=== PATIENT | male | born 1955 | race Caucasian/White ===

== ENCOUNTER 2017-08-12 11:00 | Outpatient (CLI) | payer OTHER | END 2017-08-12 11:01 | disposition home or self-care (01) | LOC: BICRAD 11:00 | PROVIDERS: ATTEND Chiropractor | DX: M54.41 Lumbago with sciatica, right side (principal); M99.03 Segmental and somatic dysfunction of lumbar region; M47.26 Other spondylosis with radiculopathy, lumbar region; M41.9 Scoliosis, unspecified | CPT/HCPCS: 72110 ==

== ENCOUNTER 2019-11-23 10:06 | Outpatient (CLI) | payer MEDICARE, OTHER | END 2019-11-23 10:07 | disposition home or self-care (01) | LOC: CTENTCT 10:06 | PROVIDERS: ATTEND Otolaryngology Plastic Surgery within the Head & Neck | DX: J32.9 Chronic sinusitis, unspecified (principal) | CPT/HCPCS: 70486 ==

== ENCOUNTER 2021-06-28 11:14 | Inpatient (IN) | payer MEDICARE, OTHER ==
[2021-06-28 11:42] LABS: #Eosinphils 0.1 thou/uL (0.0-0.7); #Lymphocytes 0.8 thou/uL (1.20-3.40); #Monocytes 0.6 thou/uL (0.11-0.59); #Neutrophils 11.3 thou/uL (1.40-6.50); %Basophils 0.1 % (0.0-1.0); %Lymphocytes 5.8 % (21.0-51.0); %Monocytes 4.8 % (0.0-10.0); %Neutrophils 88.3 % (42.0-75.0); Hemoglobin 15.4 g/dL (14.0-18.0); Mean Corpuscular HGB CONC 34.3 g/dL (32.0-36.0); Mean Corpuscular Hemoglobin 31.8 pg (27.0-31.0); Mean Corpuscular Volume 92.8 fL (78.0-98.0); Mean Platelet Volume 6.9 fL (7.4-10.4); Platelet Count 165 thou/uL (130-400); RBC Distribution Width 11.9 % (11.5-14.5); Red Blood Cell (RBC) Count 4.85 mill/uL (4.70-6.10); White Blood Cell (WBC) Count 12.8 thou/uL (4.8-10.8)
[2021-06-28] MEDS ORDERED: niCARdipine 25 MG/10 ML VIAL ONE (11:57)
[2021-06-28 12:03] LABS: ALT (SGPT) 29 U/L (8-55); AST (SGOT) 25 U/L (5-34); Albumin 4.1 g/dL (3.4-4.8); Alkaline Phosphatase 82 U/L (40-110); Anion Gap 16 mmol/L (10-20); BUN (Urea Nitrogen) 13 mg/dL (8.4-25.7); Bilirubin, Total 0.7 mg/dL (0.2-1.2); Calc. Creatinine Clearance 0 mL/min (70-130); Calcium 9.2 mg/dL (7.8-10.44); Carbon Dioxide 24 mmol/L (23-31); Chloride 105 mmol/L (98-107); Globulin 2.9 g/dL (2.4-3.5); Glucose 177 mg/dL (80-115); Potassium 3.2 mmol/L (3.5-5.1); Sodium 142 mmol/L (136-145)
[2021-06-28 12:07] LABS: Actual Bicarbonate (HCO3a) 22.8 mEq/L (22-28); Analyzer IN Cardio ER; Base Excess (BEa) -3.5 mEq/L (-2.0 to +3.0); CO2 Tension 45.4 mmHg (35.0-45.0); Calcium, Ionized (arterial) 1.17 mmol/L (1.12-1.30); Carboxyhemoglobin (COHb) 0.2 gm% (0.0-3.0); Hemoglobin (Hb) 15.7 g/dL (14.0-18.0); O2 Tension (PaO2), arterial 98.9 mmHg (> 80.0); Potassium - ABG Lab 3.46 mmol/L (3.70-5.30); pH, Arterial 7.32 (7.35-7.45)
[2021-06-28 12:16] LABS: Puncture Site RRA
[2021-06-28] MEDS ORDERED: Xylocaine 1% w/ Epi 1:100K 10 ML VIAL ONE (12:21)
[2021-06-28 12:24] LABS: Bacteria/HPF None Seen HPF (None Seen); Bilirubin Negative (Negative); Blood, Urine Trace (Negative); Clarity Clear (Clear); Glucose, Urine (Dipstick) 300 mg/dL (Negative); Ketone, Urine Negative (Negative); Leukocyte Negative Leu/uL (Negative); Nitrite Negative (Negative); Protein, Urine (Dipstick) 100 mg/dL (Neg-Trace); RBC/HPF 0-3 HPF (0-3); Specific Gravity, Urine 1.011 (1.002-1.036); Squamous Epithelial None Seen HPF (0-3); Urobilinogen Normal mg/dL (Less than 2); pH, Urine 7.5 (5.0-9.0)
[2021-06-28] MEDS ORDERED: Iopamidol-370 76% 500 ML 1 ML ONE (12:28)
[2021-06-28] MEDS ORDERED: Ondansetron PF 4 MG/2 ML Vial IVP PRN (12:54)
[2021-06-28] MEDS ORDERED: Acetaminophen 650 MG Suppository PR PRN (12:54)
[2021-06-28] MEDS ORDERED: Electrolyte Replacement Protocol 1 EACH IVPB ONE (12:54)
[2021-06-28] MEDS ORDERED: Ventilator Sedation Protocol 1 EACH FS SCH (13:00)
[2021-06-28 13:05] LABS: SARS-CoV-2 NAA Rapid Test Not Detected (NotDetected)
[2021-06-28] MEDS ORDERED: Labetalol HCl 100 MG/20 ML VIAL SLOW IVP PRN (13:19)
[2021-06-28] MEDS ORDERED: Lorazepam 2 MG/ML VIAL ONE (13:25)
[2021-06-28] MEDS ORDERED: Electrolyte Replacement Protocol FS PRN (14:00)
[2021-06-28] MEDS ORDERED: Fentanyl BOLUS 250 ML IVPB PRN (14:00)
[2021-06-28] MEDS ORDERED: Fentanyl CADD 100 ML IV SCH (14:00)
[2021-06-28] MEDS ORDERED: DISCONTINUE PREVIOUS NARCOTIC PAIN MEDICATIONS AND BENZODIAZEPINES FS SCH (14:00)
[2021-06-28] MEDS ORDERED: Propofol BOLUS 1,000 MG/100 ML VIAL IV PRN (14:00)
[2021-06-28] MEDS ORDERED: Lorazepam 2 MG/ML VIAL SLOW IVP PRN (14:00)
[2021-06-28] MEDS: ceFAZolin 2 GM/Dextrose 50 ML 2 GM in Premix Bag 1 BAG IVPB SCH ×2 (15:44→21:02)
[2021-06-28] MEDS: Sodium Chloride 0.9% 1,000 ML IV SCH (15:45)
[2021-06-28] MEDS ORDERED: FLU VACC QS2021-22(65YR UP)/PF 240 MCG/0.7 ML SYRINGE IM ONE (15:45)
[2021-06-28] MEDS: Propofol 1,000 MG/100 ML VIAL IV PRN (15:54)
[2021-06-28] MEDS: Acetaminophen 325 MG TAB PER TUBE PRN (17:42)
[2021-06-28] MEDS: Famotidine/PF 20 mg/2ml Vial SLOW IVP SCH (20:53)
[2021-06-28] MEDS: niCARdipine 25 MG in Sodium Chloride 0.9% 250 ML 250 ML IVPB PRN (20:53)
[2021-06-29] MEDS: Propofol 1,000 MG/100 ML VIAL IV PRN ×4 (00:57→21:03)
[2021-06-29] MEDS: niCARdipine 25 MG in Sodium Chloride 0.9% 250 ML 250 ML IVPB PRN ×2 (02:28→17:54)
[2021-06-29] MEDS: Sodium Chloride 0.9% 1,000 ML IV SCH ×2 (02:29→14:08)
[2021-06-29] MEDS: fentaNYL Citrate-0.9 % NaCl/PF 100 ML IVPB SCH (05:03)
[2021-06-29] MEDS: ceFAZolin 2 GM/Dextrose 50 ML 2 GM in Premix Bag 1 BAG IVPB SCH ×3 (05:04→22:44)
[2021-06-29] MEDS: Famotidine/PF 20 mg/2ml Vial SLOW IVP SCH ×2 (07:55→19:28)
[2021-06-29 10:15] LABS: Anion Gap 17 mmol/L (10-20); BUN (Urea Nitrogen) 13 mg/dL (8.4-25.7); Calc. Creatinine Clearance 69 mL/min (70-130); Calcium 9.6 mg/dL (7.8-10.44); Carbon Dioxide 23 mmol/L (23-31); Chloride 108 mmol/L (98-107); Glucose 138 mg/dL (80-115); Potassium 3.5 mmol/L (3.5-5.1); Sodium 144 mmol/L (136-145)
[2021-06-29 11:25] LABS: Band 7 % (5-11); Hemoglobin 15.2 g/dL (14.0-18.0); Lymphocytes 12 % (21-51); MDiff Complete? YES; Mean Corpuscular HGB CONC 33.9 g/dL (32.0-36.0); Mean Corpuscular Hemoglobin 31.6 pg (27.0-31.0); Mean Corpuscular Volume 93.3 fL (78.0-98.0); Mean Platelet Volume 7.1 fL (7.4-10.4); Monocytes 7 % (0-10); Neutrophil 74 % (42-75); Platelet Count 184 thou/uL (130-400); RBC Distribution Width 12.2 % (11.5-14.5); Red Blood Cell (RBC) Count 4.81 mill/uL (4.70-6.10); White Blood Cell (WBC) Count 12.7 thou/uL (4.8-10.8)
[2021-06-29] MEDS: Potassium Chloride 20 MEQ in Premix Bag 1 BAG IVPB SCH ×2 (14:07→16:29)
[2021-06-29] MEDS: Morphine 4 MG/ML VIAL SLOW IVP PRN (16:30)
[2021-06-29] MEDS: Acetaminophen 325 MG TAB PER TUBE PRN (16:30)
[2021-06-29] MEDS: Labetalol HCl 200 MG, Admixture Fee 1 EACH in Sodium Chloride 0.9% 250 ML 160 ML IVPB SCH (20:21)
[2021-06-30] MEDS: Labetalol HCl 200 MG, Admixture Fee 1 EACH in Sodium Chloride 0.9% 250 ML 160 ML IVPB SCH ×2 (03:26→10:08)
[2021-06-30] MEDS: Propofol 1,000 MG/100 ML VIAL IV PRN (03:27)
[2021-06-30 04:45] LABS: Band 12 % (5-11); Hemoglobin 14.2 g/dL (14.0-18.0); MDiff Complete? YES; Mean Corpuscular HGB CONC 34.1 g/dL (32.0-36.0); Mean Corpuscular Volume 93.8 fL (78.0-98.0); Monocytes 11 % (0-10); Neutrophil 77 % (42-75); Platelet Count 178 thou/uL (130-400); Platelet Morphology Comment Appears Adequate; RBC Distribution Width 12.2 % (11.5-14.5); RBC Morphology Normal; Red Blood Cell (RBC) Count 4.45 mill/uL (4.70-6.10)
[2021-06-30 04:55] LABS: Anion Gap 15 mmol/L (10-20); BUN (Urea Nitrogen) 16 mg/dL (8.4-25.7); Calc. Creatinine Clearance 89 mL/min (70-130); Calcium 9.4 mg/dL (7.8-10.44); Carbon Dioxide 20 mmol/L (23-31); Chloride 110 mmol/L (98-107); Glucose 155 mg/dL (80-115); Potassium 3.2 mmol/L (3.5-5.1); Sodium 142 mmol/L (136-145)
[2021-06-30] MEDS: Sodium Chloride 0.9% 1,000 ML IV SCH ×3 (05:30→23:54)
[2021-06-30] MEDS: ceFAZolin 2 GM/Dextrose 50 ML 2 GM in Premix Bag 1 BAG IVPB SCH ×3 (06:10→22:59)
[2021-06-30] MEDS: fentaNYL Citrate-0.9 % NaCl/PF 100 ML IVPB SCH (07:31)
[2021-06-30] MEDS: Potassium Chloride 20 MEQ in Premix Bag 1 BAG IVPB SCH ×2 (08:17→10:10)
[2021-06-30] MEDS: Famotidine/PF 20 mg/2ml Vial SLOW IVP SCH ×2 (08:18→21:51)
[2021-06-30] MEDS: hydrALAZINE 20 MG/ML VIAL SLOW IVP PRN (20:05)
[2021-07-01] MEDS: Labetalol HCl 200 MG, Admixture Fee 1 EACH in Sodium Chloride 0.9% 250 ML 160 ML IVPB SCH ×2 (01:10→08:30)
[2021-07-01 04:42] LABS: Anion Gap 14 mmol/L (10-20); BUN (Urea Nitrogen) 18 mg/dL (8.4-25.7); Calc. Creatinine Clearance 131 mL/min (70-130); Calcium 9.4 mg/dL (7.8-10.44); Carbon Dioxide 25 mmol/L (23-31); Chloride 106 mmol/L (98-107); Glucose 164 mg/dL (80-115); Potassium 3.5 mmol/L (3.5-5.1); Sodium 141 mmol/L (136-145)
[2021-07-01 05:11] LABS: Band 19 % (5-11); Hemoglobin 14.3 g/dL (14.0-18.0); Lymphocytes 10 % (21-51); MDiff Complete? YES; Mean Corpuscular HGB CONC 33.2 g/dL (32.0-36.0); Mean Corpuscular Hemoglobin 31.4 pg (27.0-31.0); Mean Corpuscular Volume 94.5 fL (78.0-98.0); Mean Platelet Volume 7.1 fL (7.4-10.4); Monocytes 5 % (0-10); Neutrophil 66 % (42-75); Platelet Count 163 thou/uL (130-400); RBC Distribution Width 12.1 % (11.5-14.5); Red Blood Cell (RBC) Count 4.57 mill/uL (4.70-6.10); White Blood Cell (WBC) Count 11.4 thou/uL (4.8-10.8)
[2021-07-01] MEDS ORDERED: Potassium Chloride 20 MEQ in Premix Bag 1 BAG IVPB SCH (06:00)
[2021-07-01] MEDS: ceFAZolin 2 GM/Dextrose 50 ML 2 GM in Premix Bag 1 BAG IVPB SCH ×2 (06:39→14:00)
[2021-07-01] MEDS: Potassium Chloride 10 MEQ in Premix Bag 1 BAG IVPB SCH ×4 (08:29→11:07)
[2021-07-01] MEDS: Famotidine/PF 20 mg/2ml Vial SLOW IVP SCH ×2 (10:01→21:18)
[2021-07-01] MEDS: Sodium Chloride 0.9% 1,000 ML IV SCH (13:50)
[2021-07-01] MEDS ORDERED: Fentanyl 100 MCG/2 ML VIAL ONE (14:12)
[2021-07-01] MEDS ORDERED: Midazolam HCl 2 mg/2 ml Vial ONE (14:12)
[2021-07-01] MEDS ORDERED: Lidocaine 1% (PF) 30 ML VIAL ONE (14:21)
[2021-07-01] MEDS ORDERED: Fentanyl 100 MCG/2 ML VIAL SLOW IVP SCH (14:30)
[2021-07-01] MEDS ORDERED: Midazolam HCl 2 mg/2 ml Vial SLOW IVP SCH (14:30)
[2021-07-01] MEDS ORDERED: Piperacillin/Tazobactam 3.375 GM in Sodium Chloride 0.9% 100 ML IVPB SCH (15:45)
[2021-07-01] MEDS ORDERED: VANCOMYCIN 2 GRAM/400 ML BAG 2 GM in Premix Bag 1 BAG IVPB SCH (15:45)
[2021-07-01] MEDS ORDERED: Lidocaine 1% (PF) 30 ML VIAL FS SCH (15:45)
[2021-07-01] MEDS: Piperacillin/Tazobactam 3.375 GM in Sodium Chloride 0.9% 100 ML IVPB SCH (21:18)
[2021-07-01] MEDS: Acetaminophen 325 MG TAB PER TUBE PRN (21:19)
[2021-07-01] MEDS ORDERED: metroNIDAZOLE 500 MG in Premix Bag 1 BAG IVPB SCH (22:00)
[2021-07-02] MEDS: niCARdipine 25 MG in Sodium Chloride 0.9% 250 ML 250 ML IVPB PRN ×4 (02:11→21:58)
[2021-07-02] MEDS: Piperacillin/Tazobactam 3.375 GM in Sodium Chloride 0.9% 100 ML IVPB SCH ×3 (03:31→20:33)
[2021-07-02] MEDS: Acetaminophen 325 MG TAB PER TUBE PRN ×3 (03:31→20:34)
[2021-07-02 05:04] LABS: ALT (SGPT) 11 U/L (8-55); AST (SGOT) 12 U/L (5-34); Albumin 3.1 g/dL (3.4-4.8); Alkaline Phosphatase 55 U/L (40-110); Anion Gap 12 mmol/L (10-20); BUN (Urea Nitrogen) 24 mg/dL (8.4-25.7); Bilirubin, Total 1.8 mg/dL (0.2-1.2); Calc. Creatinine Clearance 124 mL/min (70-130); Calcium 9.4 mg/dL (7.8-10.44); Carbon Dioxide 22 mmol/L (23-31); Chloride 110 mmol/L (98-107); Globulin 2.8 g/dL (2.4-3.5); Glucose 189 mg/dL (80-115); Potassium 3.4 mmol/L (3.5-5.1); Protein, Total 5.9 g/dL (5.8-8.1); Sodium 141 mmol/L (136-145)
[2021-07-02 05:11] LABS: Band 69 % (5-11); Hemoglobin 13.7 g/dL (14.0-18.0); Lymphocytes 3 % (21-51); MDiff Complete? YES; Mean Corpuscular HGB CONC 33.6 g/dL (32.0-36.0); Mean Corpuscular Volume 95.2 fL (78.0-98.0); Mean Platelet Volume 7.1 fL (7.4-10.4); Metamyelocyte 1 % (0-0); Monocytes 7 % (0-10); Neutrophil 19 % (42-75); Platelet Count 166 thou/uL (130-400); Platelet Morphology Comment Appears Adequate; RBC Distribution Width 12.2 % (11.5-14.5); RBC Morphology Normal; Reactive Lymphocytes 1 % (0-10); Red Blood Cell (RBC) Count 4.29 mill/uL (4.70-6.10); Reflex for Review?? YES
[2021-07-02] MEDS: VANCOMYCIN 1.75 GM/350 ML BAG 1.75 GM in Premix Bag 1 BAG IVPB SCH ×2 (05:18→17:45)
[2021-07-02] MEDS ORDERED: Magnesium 2 GM/50 ML 2 GM in Premix Bag 1 BAG IVPB SCH (06:30)
[2021-07-02] MEDS: Potassium Chloride 20 MEQ in Premix Bag 1 BAG IVPB SCH ×2 (09:42→14:25)
[2021-07-02] MEDS: Famotidine/PF 20 mg/2ml Vial SLOW IVP SCH ×2 (09:42→20:33)
[2021-07-02] MEDS ORDERED: Lisinopril 20 MG TAB PO SCH (12:00)
[2021-07-02] MEDS ORDERED: Amlodipine 10 MG TAB PO SCH (12:00)
[2021-07-02] MEDS: Sodium Chloride 0.9% 1,000 ML IV SCH (17:37)
[2021-07-02] MEDS: hydrALAZINE 20 MG/ML VIAL SLOW IVP PRN (19:04)
[2021-07-03] MEDS: Sodium Chloride 0.9% 1,000 ML IV SCH ×2 (00:35→08:00)
[2021-07-03] MEDS: niCARdipine 25 MG in Sodium Chloride 0.9% 250 ML 250 ML IVPB PRN ×3 (00:43→06:02)
[2021-07-03] MEDS: Morphine 4 MG/ML VIAL SLOW IVP PRN (04:14)
[2021-07-03] MEDS: VANCOMYCIN 1.75 GM/350 ML BAG 1.75 GM in Premix Bag 1 BAG IVPB SCH (04:16)
[2021-07-03] MEDS: Piperacillin/Tazobactam 3.375 GM in Sodium Chloride 0.9% 100 ML IVPB SCH ×3 (04:16→20:48)
[2021-07-03] MEDS: Acetaminophen 325 MG TAB PER TUBE PRN ×4 (04:46→22:43)
[2021-07-03 05:37] LABS: Hemoglobin 13.3 g/dL (14.0-18.0); Mean Corpuscular HGB CONC 33.2 g/dL (32.0-36.0); Mean Corpuscular Hemoglobin 31.8 pg (27.0-31.0); Mean Platelet Volume 7.3 fL (7.4-10.4); Platelet Count 191 thou/uL (130-400); RBC Distribution Width 12.2 % (11.5-14.5); Red Blood Cell (RBC) Count 4.17 mill/uL (4.70-6.10); White Blood Cell (WBC) Count 10.8 thou/uL (4.8-10.8)
[2021-07-03 05:56] LABS: Anion Gap 11 mmol/L (10-20); BUN (Urea Nitrogen) 25 mg/dL (8.4-25.7); Calc. Creatinine Clearance 131 mL/min (70-130); Carbon Dioxide 24 mmol/L (23-31); Chloride 113 mmol/L (98-107); Potassium 3.3 mmol/L (3.5-5.1); Sodium 145 mmol/L (136-145)
[2021-07-03 05:57] LABS: ALT (SGPT) 10 U/L (8-55); AST (SGOT) 12 U/L (5-34); Alkaline Phosphatase 63 U/L (40-110); Bilirubin, Total 1.3 mg/dL (0.2-1.2); Calcium 9.4 mg/dL (7.8-10.44); Glucose 178 mg/dL (80-115); Magnesium 2.2 mg/dL (1.6-2.6)
[2021-07-03] MEDS ORDERED: Potassium Chloride 40 MEQ in Premix Bag 1 BAG IVPB SCH (07:00)
[2021-07-03 07:16] LABS: Band 18 % (5-11); Lymphocytes 13 % (21-51); MDiff Complete? YES; Monocytes 3 % (0-10); Neutrophil 66 % (42-75); Platelet Morphology Comment Appears Adequate; RBC Morphology Normal
[2021-07-03] MEDS: Famotidine/PF 20 mg/2ml Vial SLOW IVP SCH ×2 (08:00→20:48)
[2021-07-03] MEDS ORDERED: Sterile Water 10 ML ONE (09:24)
[2021-07-03 09:27] LABS: Vancomycin, Trough 22.7 ug/mL
[2021-07-03] MEDS ORDERED: hydrALAZINE 20 MG/ML VIAL SLOW IVP PRN (10:00)
[2021-07-03] MEDS ORDERED: Lisinopril 20 MG TAB PO SCH (10:15)
[2021-07-03] MEDS ORDERED: Metoprolol Tartrate 25 MG TAB PO SCH (10:15)
[2021-07-03] MEDS ORDERED: Amlodipine 10 MG TAB PO SCH (10:15)
[2021-07-03] MEDS ORDERED: Polyethylene Glycol 3350 17 GM Packet PO SCH (10:45)
[2021-07-03] MEDS ORDERED: Senokot S 8.6-50 MG TAB PO SCH (10:45)
[2021-07-03] MEDS: VANCOMYCIN 1.25 GM/250 ML BAG 1.25 GM in Premix Bag 1 BAG IVPB SCH (16:10)
[2021-07-03] MEDS ORDERED: Magnevist 469MG/ML 20 ML VIAL ONE ×2 (16:34→16:36)
[2021-07-03] MEDS: Lisinopril 20 MG TAB PO SCH (20:48)
[2021-07-03] MEDS: Senokot S 8.6-50 MG TAB PO SCH (20:48)
[2021-07-03] MEDS: Metoprolol Tartrate 50 MG TAB PO SCH (20:48)
[2021-07-04] MEDS: Sodium Chloride 0.9% 1,000 ML IV SCH ×2 (01:26→12:38)
[2021-07-04] MEDS: Acetaminophen 650 MG/20.3 ML UDCUP PER TUBE PRN ×3 (03:52→20:30)
[2021-07-04] MEDS: Piperacillin/Tazobactam 3.375 GM in Sodium Chloride 0.9% 100 ML IVPB SCH ×3 (03:52→20:25)
[2021-07-04] MEDS: niCARdipine 25 MG in Sodium Chloride 0.9% 250 ML 250 ML IVPB PRN ×4 (04:08→22:11)
[2021-07-04 04:42] LABS: Band 23 % (5-11); Hemoglobin 13.9 g/dL (14.0-18.0); Lymphocytes 5 % (21-51); MDiff Complete? YES; Mean Corpuscular HGB CONC 33.3 g/dL (32.0-36.0); Mean Corpuscular Volume 95.9 fL (78.0-98.0); Mean Platelet Volume 7.4 fL (7.4-10.4); Monocytes 5 % (0-10); Neutrophil 67 % (42-75); Platelet Count 227 thou/uL (130-400); Platelet Morphology Comment Appears Adequate; RBC Distribution Width 12.3 % (11.5-14.5); RBC Morphology Normal; Red Blood Cell (RBC) Count 4.35 mill/uL (4.70-6.10); White Blood Cell (WBC) Count 12.9 thou/uL (4.8-10.8)
[2021-07-04 04:50] LABS: ALT (SGPT) 21 U/L (8-55); AST (SGOT) 28 U/L (5-34); Alkaline Phosphatase 85 U/L (40-110); Anion Gap 15 mmol/L (10-20); BUN (Urea Nitrogen) 24 mg/dL (8.4-25.7); Bilirubin, Total 1.1 mg/dL (0.2-1.2); Calc. Creatinine Clearance 149 mL/min (70-130); Calcium 9.6 mg/dL (7.8-10.44); Carbon Dioxide 23 mmol/L (23-31); Chloride 112 mmol/L (98-107); Globulin 3.4 g/dL (2.4-3.5); Glucose 165 mg/dL (80-115); Magnesium 2.2 mg/dL (1.6-2.6); Potassium 3.4 mmol/L (3.5-5.1); Protein, Total 6.4 g/dL (5.8-8.1); Sodium 147 mmol/L (136-145)
[2021-07-04] MEDS: VANCOMYCIN 1.25 GM/250 ML BAG 1.25 GM in Premix Bag 1 BAG IVPB SCH ×2 (05:33→16:04)
[2021-07-04] MEDS ORDERED: Electrolyte Replacement Protocol 1 EACH FS ONE (07:41)
[2021-07-04] MEDS ORDERED: Potassium Chloride 40 MEQ in Premix Bag 1 BAG IVPB SCH (07:45)
[2021-07-04] MEDS ORDERED: Electrolyte Replacement Protocol FS PRN (08:00)
[2021-07-04] MEDS: Famotidine/PF 20 mg/2ml Vial SLOW IVP SCH (08:03)
[2021-07-04] MEDS: Polyethylene Glycol 3350 17 GM Packet PO SCH (08:03)
[2021-07-04] MEDS: Amlodipine 10 MG TAB PO SCH (08:04)
[2021-07-04] MEDS: Lisinopril 20 MG TAB PO SCH ×2 (08:04→20:36)
[2021-07-04] MEDS: Senokot S 8.6-50 MG TAB PO SCH ×2 (08:04→20:37)
[2021-07-04] MEDS: Metoprolol Tartrate 50 MG TAB PO SCH ×2 (08:04→20:37)
[2021-07-04] MEDS: Famotidine 20 MG TAB PER TUBE SCH ×2 (09:34→20:37)
[2021-07-04 14:58] LABS: Potassium 3.7 mmol/L (3.5-5.1)
[2021-07-05] MEDS: niCARdipine 25 MG in Sodium Chloride 0.9% 250 ML 250 ML IVPB PRN ×2 (01:40→04:23)
[2021-07-05] MEDS: Acetaminophen 650 MG/20.3 ML UDCUP PER TUBE PRN ×4 (02:20→20:46)
[2021-07-05] MEDS: Piperacillin/Tazobactam 3.375 GM in Sodium Chloride 0.9% 100 ML IVPB SCH ×3 (04:22→20:41)
[2021-07-05] MEDS: Sodium Chloride 0.9% 1,000 ML IV SCH (04:38)
[2021-07-05 06:03] LABS: Anion Gap 15 mmol/L (10-20); BUN (Urea Nitrogen) 28 mg/dL (8.4-25.7); Calc. Creatinine Clearance 139 mL/min (70-130); Calcium 9.2 mg/dL (7.8-10.44); Carbon Dioxide 22 mmol/L (23-31); Chloride 115 mmol/L (98-107); Glucose 171 mg/dL (80-115); Potassium 3.4 mmol/L (3.5-5.1); Sodium 149 mmol/L (136-145)
[2021-07-05 06:15] LABS: Band 7 % (5-11); Hemoglobin 13.1 g/dL (14.0-18.0); Hypochromia SLIGHT = 6-15 cells (100X) (0-5/hpf); Lymphocytes 10 % (21-51); MDiff Complete? YES; Mean Corpuscular Hemoglobin 32.2 pg (27.0-31.0); Mean Corpuscular Volume 97.4 fL (78.0-98.0); Mean Platelet Volume 7.1 fL (7.4-10.4); Monocytes 6 % (0-10); Neutrophil 77 % (42-75); Platelet Count 260 thou/uL (130-400); Platelet Morphology Comment Appears Adequate; RBC Distribution Width 12.7 % (11.5-14.5); Red Blood Cell (RBC) Count 4.08 mill/uL (4.70-6.10); White Blood Cell (WBC) Count 10.5 thou/uL (4.8-10.8)
[2021-07-05 06:18] LABS: Vancomycin, Trough 7.3 ug/mL
[2021-07-05] MEDS: VANCOMYCIN 1.25 GM/250 ML BAG 1.25 GM in Premix Bag 1 BAG IVPB SCH (06:39)
[2021-07-05] MEDS ORDERED: Potassium Chloride 40 MEQ in Premix Bag 1 BAG IVPB SCH (07:00)
[2021-07-05] MEDS: niCARdipine 50 MG in Sodium Chloride 0.9% 250 ML 230 ML IV SCH ×2 (07:11→23:26)
[2021-07-05] MEDS: Sodium Chloride 0.45% 1,000 ML IV SCH ×2 (07:58→20:46)
[2021-07-05] MEDS ORDERED: VANCOMYCIN 1.75 GM/350 ML BAG 1.75 GM in Premix Bag 1 BAG IVPB SCH (08:00)
[2021-07-05] MEDS: Famotidine 20 MG TAB PER TUBE SCH ×2 (08:18→20:42)
[2021-07-05] MEDS: Metoprolol Tartrate 50 MG TAB PO SCH ×2 (08:18→20:44)
[2021-07-05] MEDS: Lisinopril 20 MG TAB PO SCH ×2 (08:18→20:43)
[2021-07-05] MEDS: Amlodipine 10 MG TAB PO SCH (08:18)
[2021-07-05] MEDS: Senokot S 8.6-50 MG TAB PO SCH ×2 (08:18→20:44)
[2021-07-05] MEDS: hydrALAZINE 25 MG TAB PO SCH ×4 (08:18→20:43)
[2021-07-05] MEDS: Polyethylene Glycol 3350 17 GM Packet PO SCH (08:18)
[2021-07-05] MEDS ORDERED: niCARdipine 50 MG in Sodium Chloride 0.9% 250 ML 230 ML IV SCH (11:15)
[2021-07-05 18:41] LABS: SARS-CoV-2 PCR by NAA Not Detected (NotDetected)
[2021-07-06] MEDS: Acetaminophen 650 MG/20.3 ML UDCUP PER TUBE PRN ×3 (04:15→15:57)
[2021-07-06] MEDS: Piperacillin/Tazobactam 3.375 GM in Sodium Chloride 0.9% 100 ML IVPB SCH ×3 (04:15→20:45)
[2021-07-06 04:59] LABS: Band 1 % (5-11); Hemoglobin 13.9 g/dL (14.0-18.0); Lymphocytes 13 % (21-51); MDiff Complete? YES; Mean Corpuscular HGB CONC 33.8 g/dL (32.0-36.0); Mean Corpuscular Hemoglobin 33.2 pg (27.0-31.0); Mean Corpuscular Volume 98.1 fL (78.0-98.0); Mean Platelet Volume 6.9 fL (7.4-10.4); Monocytes 11 % (0-10); Neutrophil 74 % (42-75); Platelet Count 288 thou/uL (130-400); Platelet Morphology Comment Appears Adequate; RBC Distribution Width 12.7 % (11.5-14.5); RBC Morphology Normal; Red Blood Cell (RBC) Count 4.18 mill/uL (4.70-6.10); White Blood Cell (WBC) Count 12.9 thou/uL (4.8-10.8)
[2021-07-06 05:00] LABS: Anion Gap 13 mmol/L (10-20); BUN (Urea Nitrogen) 29 mg/dL (8.4-25.7); Calc. Creatinine Clearance 137 mL/min (70-130); Calcium 9.3 mg/dL (7.8-10.44); Carbon Dioxide 26 mmol/L (23-31); Chloride 117 mmol/L (98-107); Glucose 183 mg/dL (80-115); Potassium 3.6 mmol/L (3.5-5.1); Sodium 152 mmol/L (136-145)
[2021-07-06] MEDS: Famotidine 20 MG TAB PER TUBE SCH ×2 (07:55→21:16)
[2021-07-06] MEDS: Lisinopril 20 MG TAB PO SCH ×2 (07:55→21:17)
[2021-07-06] MEDS: Amlodipine 10 MG TAB PO SCH (07:56)
[2021-07-06] MEDS: hydrALAZINE 25 MG TAB PO SCH ×4 (07:56→21:17)
[2021-07-06] MEDS: Polyethylene Glycol 3350 17 GM Packet PO SCH (07:56)
[2021-07-06] MEDS: Senokot S 8.6-50 MG TAB PO SCH ×2 (07:56→21:18)
[2021-07-06] MEDS: Metoprolol Tartrate 50 MG TAB PO SCH ×2 (07:56→21:17)
[2021-07-06] MEDS: Sodium Chloride 0.45% 1,000 ML IV SCH (10:06)
[2021-07-06] MEDS: Dextrose 5% in Water 1,000 ML IV SCH ×2 (11:00→21:15)
[2021-07-06 19:33] LABS: Vancomycin, Trough Less than 1.1 ug/mL
[2021-07-07] MEDS: niCARdipine 50 MG in Sodium Chloride 0.9% 250 ML 230 ML IV SCH (00:18)
[2021-07-07] MEDS: Piperacillin/Tazobactam 3.375 GM in Sodium Chloride 0.9% 100 ML IVPB SCH ×3 (04:30→20:39)
[2021-07-07 05:01] LABS: Anion Gap 14 mmol/L (10-20); BUN (Urea Nitrogen) 28 mg/dL (8.4-25.7); Calc. Creatinine Clearance 128 mL/min (70-130); Calcium 8.8 mg/dL (7.8-10.44); Carbon Dioxide 26 mmol/L (23-31); Chloride 112 mmol/L (98-107); Glucose 209 mg/dL (80-115); Potassium 3.5 mmol/L (3.5-5.1); Sodium 148 mmol/L (136-145)
[2021-07-07] MEDS: Dextrose 5% in Water 1,000 ML IV SCH (05:52)
[2021-07-07 05:53] LABS: Band 8 % (5-11); Hemoglobin 13.3 g/dL (14.0-18.0); Lymphocytes 13 % (21-51); MDiff Complete? YES; Mean Corpuscular HGB CONC 32.3 g/dL (32.0-36.0); Mean Corpuscular Hemoglobin 31.7 pg (27.0-31.0); Mean Platelet Volume 7.1 fL (7.4-10.4); Monocytes 4 % (0-10); Neutrophil 75 % (42-75); Platelet Count 289 thou/uL (130-400); Platelet Morphology Comment Appears Adequate; RBC Distribution Width 12.8 % (11.5-14.5); RBC Morphology Normal; Red Blood Cell (RBC) Count 4.19 mill/uL (4.70-6.10); White Blood Cell (WBC) Count 13.6 thou/uL (4.8-10.8)
[2021-07-07] MEDS ORDERED: Potassium Chloride 20 MEQ TAB PO SCH (07:00)
[2021-07-07] MEDS: Metoprolol Tartrate 50 MG TAB PO SCH ×2 (08:07→20:42)
[2021-07-07] MEDS: hydrALAZINE 25 MG TAB PO SCH ×4 (08:07→20:42)
[2021-07-07] MEDS: Amlodipine 10 MG TAB PO SCH (08:07)
[2021-07-07] MEDS: Polyethylene Glycol 3350 17 GM Packet PO SCH (08:08)
[2021-07-07] MEDS: Acetaminophen 650 MG/20.3 ML UDCUP PER TUBE PRN ×3 (08:08→13:11)
[2021-07-07] MEDS: Senokot S 8.6-50 MG TAB PO SCH ×2 (08:08→20:42)
[2021-07-07] MEDS: Lisinopril 20 MG TAB PO SCH ×2 (08:08→20:42)
[2021-07-07] MEDS: Famotidine 20 MG TAB PER TUBE SCH ×2 (08:08→20:42)
[2021-07-07] MEDS ORDERED: Potassium Bicarbonate/Cit Ac 20 MEQ TAB PO SCH (09:00)
[2021-07-07] MEDS ORDERED: Dextrose 5% in Water 1,000 ML IV PRN (17:05)
[2021-07-07] MEDS ORDERED: Dextrose 50% Abboject 50 ML SYRINGE SLOW IVP PRN (17:05)
[2021-07-07] MEDS: HumaLOG 300 UNITS/3 ML VIAL SC PRN (18:22)
[2021-07-07] MEDS ORDERED: Lantus 1000 UNITS/10 ML VIAL SC SCH (21:00)
[2021-07-08] MEDS: HumaLOG 300 UNITS/3 ML VIAL SC PRN ×3 (00:23→18:13)
[2021-07-08] MEDS: Piperacillin/Tazobactam 3.375 GM in Sodium Chloride 0.9% 100 ML IVPB SCH ×3 (04:17→20:41)
[2021-07-08] MEDS: Acetaminophen 650 MG/20.3 ML UDCUP PER TUBE PRN ×3 (04:29→16:03)
[2021-07-08 06:47] LABS: Band 3 % (5-11); Eosinophils 1 % (0-10); Hemoglobin 14.2 g/dL (14.0-18.0); Lymphocytes 19 % (21-51); MDiff Complete? YES; Mean Corpuscular HGB CONC 32.6 g/dL (32.0-36.0); Mean Corpuscular Volume 98.2 fL (78.0-98.0); Mean Platelet Volume 8.1 fL (7.4-10.4); Monocytes 7 % (0-10); Neutrophil 70 % (42-75); Platelet Count 256 thou/uL (130-400); Platelet Morphology Comment Appears Adequate; RBC Distribution Width 12.8 % (11.5-14.5); RBC Morphology Normal; Red Blood Cell (RBC) Count 4.46 mill/uL (4.70-6.10); White Blood Cell (WBC) Count 16.2 thou/uL (4.8-10.8)
[2021-07-08 06:51] LABS: Anion Gap 16 mmol/L (10-20); BUN (Urea Nitrogen) 28 mg/dL (8.4-25.7); Calc. Creatinine Clearance 123 mL/min (70-130); Calcium 9.1 mg/dL (7.8-10.44); Carbon Dioxide 23 mmol/L (23-31); Chloride 111 mmol/L (98-107); Glucose 160 mg/dL (80-115); Potassium 4.1 mmol/L (3.5-5.1); Sodium 146 mmol/L (136-145)
[2021-07-08] MEDS: Polyethylene Glycol 3350 17 GM Packet PO SCH (08:21)
[2021-07-08] MEDS: Amlodipine 10 MG TAB PO SCH (08:21)
[2021-07-08] MEDS: Metoprolol Tartrate 50 MG TAB PO SCH ×2 (08:21→20:42)
[2021-07-08] MEDS: Lisinopril 20 MG TAB PO SCH ×2 (08:21→21:54)
[2021-07-08] MEDS: Famotidine 20 MG TAB PER TUBE SCH ×2 (08:21→20:42)
[2021-07-08] MEDS: hydrALAZINE 25 MG TAB PO SCH ×4 (08:22→21:53)
[2021-07-08] MEDS: Senokot S 8.6-50 MG TAB PO SCH ×2 (08:22→20:42)
[2021-07-09] MEDS: HumaLOG 300 UNITS/3 ML VIAL SC PRN ×4 (00:08→17:31)
[2021-07-09 04:08] LABS: Band 17 % (5-11); Eosinophils 1 % (0-10); Hemoglobin 14.9 g/dL (14.0-18.0); Lymphocytes 9 % (21-51); MDiff Complete? YES; Mean Corpuscular HGB CONC 32.9 g/dL (32.0-36.0); Mean Corpuscular Volume 97.2 fL (78.0-98.0); Mean Platelet Volume 7.6 fL (7.4-10.4); Monocytes 5 % (0-10); Neutrophil 68 % (42-75); Platelet Count 312 thou/uL (130-400); Platelet Morphology Comment Appears Adequate; RBC Distribution Width 12.6 % (11.5-14.5); Red Blood Cell (RBC) Count 4.66 mill/uL (4.70-6.10); White Blood Cell (WBC) Count 13.5 thou/uL (4.8-10.8)
[2021-07-09 04:15] LABS: Anion Gap 16 mmol/L (10-20); BUN (Urea Nitrogen) 30 mg/dL (8.4-25.7); Calc. Creatinine Clearance 128 mL/min (70-130); Calcium 9.5 mg/dL (7.8-10.44); Carbon Dioxide 23 mmol/L (23-31); Chloride 111 mmol/L (98-107); Glucose 162 mg/dL (80-115); Potassium 4.4 mmol/L (3.5-5.1); Sodium 146 mmol/L (136-145)
[2021-07-09] MEDS: Piperacillin/Tazobactam 3.375 GM in Sodium Chloride 0.9% 100 ML IVPB SCH ×3 (04:31→20:15)
[2021-07-09] MEDS: Acetaminophen 650 MG/20.3 ML UDCUP PER TUBE PRN ×2 (04:31→20:15)
[2021-07-09] MEDS ORDERED: Dextrose 50% Abboject 50 ML SYRINGE SLOW IVP PRN (07:55)
[2021-07-09] MEDS ORDERED: Dextrose 5% in Water 1,000 ML IV PRN (07:55)
[2021-07-09] MEDS: hydrALAZINE 25 MG TAB PO SCH ×4 (09:17→20:15)
[2021-07-09] MEDS: Amlodipine 10 MG TAB PO SCH (09:17)
[2021-07-09] MEDS: Famotidine 20 MG TAB PER TUBE SCH ×2 (09:17→20:15)
[2021-07-09] MEDS: Lisinopril 20 MG TAB PO SCH ×2 (09:17→20:16)
[2021-07-09] MEDS: Metoprolol Tartrate 50 MG TAB PO SCH ×2 (09:17→20:16)
[2021-07-09] MEDS: Senokot S 8.6-50 MG TAB PO SCH ×2 (09:18→20:16)
[2021-07-09] MEDS: Polyethylene Glycol 3350 17 GM Packet PO SCH (09:18)
[2021-07-09 11:01] LABS: Actual Bicarbonate (HCO3v) 28 mEq/L (22-28); Base Excess 3.8 mEq/L (-2.0 to +3.0); Calcium, Ionized (venous) 1.16 mmol/L (1.16-1.32); Chloride (VBG) 110 mmol/L (98-106); Hemoglobin (Hb) 15.2 g/dL (12.6-17.4); Potassium (VBG) 4.37 mmol/L (3.70-5.30); Sodium 147.1 mmol/L (133-146); pH (venous) 7.46 (7.32-7.43)
[2021-07-09] MEDS: Lantus 1000 UNITS/10 ML VIAL SC SCH (21:19)
[2021-07-10] MEDS: HumaLOG 300 UNITS/3 ML VIAL SC PRN ×3 (00:06→18:44)
[2021-07-10 03:52] LABS: Band 9 % (5-11); Hemoglobin 14.4 g/dL (14.0-18.0); Lymphocytes 9 % (21-51); MDiff Complete? YES; Mean Corpuscular HGB CONC 30.6 g/dL (32.0-36.0); Mean Corpuscular Hemoglobin 30.5 pg (27.0-31.0); Mean Corpuscular Volume 99.6 fL (78.0-98.0); Mean Platelet Volume 7.8 fL (7.4-10.4); Monocytes 5 % (0-10); Neutrophil 77 % (42-75); Platelet Count 319 thou/uL (130-400); Platelet Morphology Comment Appears Adequate; RBC Distribution Width 12.7 % (11.5-14.5); RBC Morphology Normal; Red Blood Cell (RBC) Count 4.73 mill/uL (4.70-6.10); White Blood Cell (WBC) Count 14.4 thou/uL (4.8-10.8)
[2021-07-10 03:57] LABS: Anion Gap 14 mmol/L (10-20); BUN (Urea Nitrogen) 34 mg/dL (8.4-25.7); Calc. Creatinine Clearance 104 mL/min (70-130); Calcium 9.6 mg/dL (7.8-10.44); Carbon Dioxide 27 mmol/L (23-31); Chloride 110 mmol/L (98-107); Glucose 183 mg/dL (80-115); Potassium 3.9 mmol/L (3.5-5.1); Sodium 147 mmol/L (136-145)
[2021-07-10] MEDS: Piperacillin/Tazobactam 3.375 GM in Sodium Chloride 0.9% 100 ML IVPB SCH ×3 (04:44→20:48)
[2021-07-10 09:17] LABS: Actual Bicarbonate (HCO3v) 28 mEq/L (22-28); Base Excess 2.8 mEq/L (-2.0 to +3.0); Chloride (VBG) 110 mmol/L (98-106); Hemoglobin (Hb) 15.1 g/dL (12.6-17.4); Potassium (VBG) 4.04 mmol/L (3.70-5.30); Sodium 148.2 mmol/L (133-146); pH (venous) 7.42 (7.32-7.43)
[2021-07-10] MEDS: Acetaminophen 650 MG/20.3 ML UDCUP PER TUBE PRN ×2 (09:34→20:53)
[2021-07-10] MEDS: Amlodipine 10 MG TAB PO SCH (09:35)
[2021-07-10] MEDS: Lisinopril 20 MG TAB PO SCH ×2 (09:35→20:50)
[2021-07-10] MEDS: Famotidine 20 MG TAB PER TUBE SCH ×2 (09:35→20:49)
[2021-07-10] MEDS: Metoprolol Tartrate 50 MG TAB PO SCH ×2 (09:35→20:49)
[2021-07-10] MEDS: hydrALAZINE 25 MG TAB PO SCH ×4 (14:36→20:26)
[2021-07-10] MEDS: Polyethylene Glycol 3350 17 GM Packet PO SCH (14:37)
[2021-07-10] MEDS: Senokot S 8.6-50 MG TAB PO SCH ×2 (14:37→20:49)
[2021-07-10] MEDS: Lantus 1000 UNITS/10 ML VIAL SC SCH (20:50)
[2021-07-11] MEDS: Piperacillin/Tazobactam 3.375 GM in Sodium Chloride 0.9% 100 ML IVPB SCH (03:07)
[2021-07-11] MEDS: Acetaminophen 650 MG/20.3 ML UDCUP PER TUBE PRN ×2 (04:28→20:52)
[2021-07-11] MEDS: HumaLOG 300 UNITS/3 ML VIAL SC PRN ×2 (04:30→16:52)
[2021-07-11] MEDS: Lisinopril 20 MG TAB PO SCH ×2 (07:19→20:06)
[2021-07-11] MEDS: Metoprolol Tartrate 50 MG TAB PO SCH ×2 (07:20→20:06)
[2021-07-11] MEDS: Amlodipine 10 MG TAB PO SCH (07:20)
[2021-07-11] MEDS: hydrALAZINE 25 MG TAB PO SCH ×4 (07:20→20:06)
[2021-07-11] MEDS: Polyethylene Glycol 3350 17 GM Packet PO SCH (07:20)
[2021-07-11] MEDS: Famotidine 20 MG TAB PER TUBE SCH ×2 (07:20→20:06)
[2021-07-11] MEDS: Senokot S 8.6-50 MG TAB PO SCH ×2 (07:21→19:54)
[2021-07-11 07:35] LABS: Hemoglobin 14.2 g/dL (14.0-18.0); Mean Corpuscular HGB CONC 32.5 g/dL (32.0-36.0); Mean Corpuscular Hemoglobin 32.2 pg (27.0-31.0); Mean Corpuscular Volume 99.2 fL (78.0-98.0); Mean Platelet Volume 7.9 fL (7.4-10.4); Platelet Count 251 thou/uL (130-400); RBC Distribution Width 12.7 % (11.5-14.5); Red Blood Cell (RBC) Count 4.39 mill/uL (4.70-6.10); White Blood Cell (WBC) Count 17.6 thou/uL (4.8-10.8)
[2021-07-11 07:47] LABS: Anion Gap 14 mmol/L (10-20); BUN (Urea Nitrogen) 38 mg/dL (8.4-25.7); Calc. Creatinine Clearance 113 mL/min (70-130); Calcium 9.7 mg/dL (7.8-10.44); Carbon Dioxide 26 mmol/L (23-31); Chloride 112 mmol/L (98-107); Glucose 166 mg/dL (80-115); Potassium 4.1 mmol/L (3.5-5.1); Sodium 148 mmol/L (136-145)
[2021-07-11 08:45] LABS: Band 13 % (5-11); Lymphocytes 8 % (21-51); MDiff Complete? YES; Macrocytosis SLIGHT = 6-15 cells (100X) (0-5/hpf); Monocytes 4 % (0-10); Neutrophil 72 % (42-75); Platelet Morphology Comment Appears Adequate; Reactive Lymphocytes 2 % (0-10)
[2021-07-11] MEDS: Lantus 1000 UNITS/10 ML VIAL SC SCH (20:05)
[2021-07-11] MEDS ORDERED: Lantus 1000 UNITS/10 ML VIAL SC SCH (21:00)
[2021-07-11 22:18] LABS: #Lymphocytes 0.9 thou/uL (1.20-3.40); #Neutrophils 14.9 thou/uL (1.40-6.50); %Basophils 0.1 % (0.0-1.0); %Eosinophils 0.1 % (0.0-10.0); %Lymphocytes 5.6 % (21.0-51.0); %Monocytes 5.6 % (0.0-10.0); %Neutrophils 88.6 % (42.0-75.0); Hemoglobin 13.8 g/dL (14.0-18.0); Mean Corpuscular HGB CONC 32.2 g/dL (32.0-36.0); Mean Corpuscular Hemoglobin 32.1 pg (27.0-31.0); Mean Corpuscular Volume 99.8 fL (78.0-98.0); Mean Platelet Volume 8.2 fL (7.4-10.4); Platelet Count 251 thou/uL (130-400); Red Blood Cell (RBC) Count 4.28 mill/uL (4.70-6.10); White Blood Cell (WBC) Count 16.8 thou/uL (4.8-10.8)
[2021-07-12] MEDS: Morphine 4 MG/ML VIAL SLOW IVP PRN (02:16)
[2021-07-12 04:11] LABS: Phosphorus 4.7 mg/dL (2.3-4.7)
[2021-07-12 04:21] LABS: ALT (SGPT) 68 U/L (8-55); AST (SGOT) 36 U/L (5-34); Albumin 3.5 g/dL (3.4-4.8); Alkaline Phosphatase 73 U/L (40-110); Anion Gap 13 mmol/L (10-20); BUN (Urea Nitrogen) 54 mg/dL (8.4-25.7); Bilirubin, Total 0.9 mg/dL (0.2-1.2); Calc. Creatinine Clearance 75 mL/min (70-130); Calcium 10.2 mg/dL (7.8-10.44); Carbon Dioxide 26 mmol/L (23-31); Chloride 115 mmol/L (98-107); Globulin 3.3 g/dL (2.4-3.5); Glucose 199 mg/dL (80-115); Potassium 4.1 mmol/L (3.5-5.1); Protein, Total 6.8 g/dL (5.8-8.1); Sodium 150 mmol/L (136-145)
[2021-07-12] MEDS: Acetaminophen 650 MG/20.3 ML UDCUP PER TUBE PRN ×2 (04:33→16:26)
[2021-07-12 04:47] LABS: Band 17 % (5-11); Hemoglobin 13.6 g/dL (14.0-18.0); Lymphocytes 5 % (21-51); MDiff Complete? YES; Mean Corpuscular HGB CONC 31.9 g/dL (32.0-36.0); Mean Corpuscular Hemoglobin 31.8 pg (27.0-31.0); Mean Corpuscular Volume 99.9 fL (78.0-98.0); Mean Platelet Volume 8.6 fL (7.4-10.4); Monocytes 4 % (0-10); Neutrophil 74 % (42-75); Platelet Count 239 thou/uL (130-400); Red Blood Cell (RBC) Count 4.28 mill/uL (4.70-6.10)
[2021-07-12] MEDS: Amlodipine 10 MG TAB PO SCH (07:24)
[2021-07-12] MEDS: hydrALAZINE 25 MG TAB PO SCH ×4 (07:24→20:43)
[2021-07-12] MEDS: Metoprolol Tartrate 50 MG TAB PO SCH ×2 (07:25→20:43)
[2021-07-12] MEDS: Lisinopril 20 MG TAB PO SCH ×2 (07:25→20:43)
[2021-07-12] MEDS: Senokot S 8.6-50 MG TAB PO SCH ×2 (07:27→20:43)
[2021-07-12] MEDS: Polyethylene Glycol 3350 17 GM Packet PO SCH (07:27)
[2021-07-12] MEDS: Famotidine 20 MG TAB PER TUBE SCH ×2 (07:27→20:43)
[2021-07-12] MEDS ORDERED: Piperacillin/Tazobactam 3.375 GM in Sodium Chloride 0.9% 100 ML IVPB SCH ×2 (08:30→09:00)
[2021-07-12] MEDS ORDERED: VANCOMYCIN 2 GRAM/400 ML BAG 2 GM in Premix Bag 1 BAG IVPB SCH (09:00)
[2021-07-12] MEDS: Dextrose 5% in Water 1,000 ML IV SCH (09:44)
[2021-07-12] MEDS: HumaLOG 300 UNITS/3 ML VIAL SC PRN ×2 (11:16→15:50)
[2021-07-12] MEDS: Piperacillin/Tazobactam 3.375 GM in Sodium Chloride 0.9% 100 ML IVPB SCH ×2 (15:28→20:43)
[2021-07-12] MEDS: Lantus 1000 UNITS/10 ML VIAL SC SCH (20:45)
[2021-07-13] MEDS: Acetaminophen 650 MG/20.3 ML UDCUP PER TUBE PRN ×3 (01:06→16:02)
[2021-07-13] MEDS: Dextrose 5% in Water 1,000 ML IV SCH ×3 (02:07→22:16)
[2021-07-13] MEDS: HumaLOG 300 UNITS/3 ML VIAL SC PRN ×3 (02:22→11:38)
[2021-07-13 03:53] LABS: Hemoglobin 12.8 g/dL (14.0-18.0); Mean Corpuscular HGB CONC 32.7 g/dL (32.0-36.0); Mean Corpuscular Hemoglobin 32.9 pg (27.0-31.0); Mean Platelet Volume 8.7 fL (7.4-10.4); Platelet Count 199 thou/uL (130-400); White Blood Cell (WBC) Count 17.2 thou/uL (4.8-10.8)
[2021-07-13 04:21] LABS: ALT (SGPT) 57 U/L (8-55); AST (SGOT) 34 U/L (5-34); Albumin 3.2 g/dL (3.4-4.8); Alkaline Phosphatase 67 U/L (40-110); Anion Gap 16 mmol/L (10-20); BUN (Urea Nitrogen) 54 mg/dL (8.4-25.7); Bilirubin, Total 0.9 mg/dL (0.2-1.2); Calc. Creatinine Clearance 81 mL/min (70-130); Calcium 9.9 mg/dL (7.8-10.44); Carbon Dioxide 22 mmol/L (23-31); Chloride 118 mmol/L (98-107); Globulin 3.5 g/dL (2.4-3.5); Glucose 218 mg/dL (80-115); Magnesium 2.9 mg/dL (1.6-2.6); Phosphorus 3.4 mg/dL (2.3-4.7); Potassium 3.9 mmol/L (3.5-5.1); Protein, Total 6.7 g/dL (5.8-8.1); Sodium 152 mmol/L (136-145)
[2021-07-13 05:11] LABS: Band 10 % (5-11); Lymphocytes 9 % (21-51); MDiff Complete? YES; Monocytes 6 % (0-10); Neutrophil 75 % (42-75)
[2021-07-13] MEDS: Piperacillin/Tazobactam 3.375 GM in Sodium Chloride 0.9% 100 ML IVPB SCH ×2 (05:52→15:44)
[2021-07-13] MEDS: Amlodipine 10 MG TAB PO SCH (07:43)
[2021-07-13] MEDS: hydrALAZINE 25 MG TAB PO SCH ×4 (07:43→20:02)
[2021-07-13] MEDS: Metoprolol Tartrate 50 MG TAB PO SCH ×2 (07:44→20:02)
[2021-07-13] MEDS: Lisinopril 20 MG TAB PO SCH ×2 (07:44→20:02)
[2021-07-13] MEDS: Polyethylene Glycol 3350 17 GM Packet PO SCH (07:45)
[2021-07-13] MEDS: Senokot S 8.6-50 MG TAB PO SCH ×2 (07:45→20:02)
[2021-07-13] MEDS: Famotidine 20 MG TAB PER TUBE SCH ×2 (07:46→20:02)
[2021-07-13] MEDS ORDERED: VANCOMYCIN 1.75 GM/350 ML BAG 1.75 GM in Premix Bag 1 BAG IVPB SCH (10:00)
[2021-07-13 15:13] LABS: SARS-CoV-2 PCR by NAA Not Detected (NotDetected)
[2021-07-13 17:20] LABS: Anion Gap 18 mmol/L (10-20); BUN (Urea Nitrogen) 59 mg/dL (8.4-25.7); Calc. Creatinine Clearance 77 mL/min (70-130); Carbon Dioxide 20 mmol/L (23-31); Chloride 119 mmol/L (98-107); Glucose 155 mg/dL (80-115); Magnesium 2.9 mg/dL (1.6-2.6); Potassium 3.8 mmol/L (3.5-5.1); Sodium 153 mmol/L (136-145)
[2021-07-13] MEDS ORDERED: Meropenem 1 GM in Sodium Chloride 0.9% 100 ML IVPB SCH ×2 (20:00→22:00)
[2021-07-13] MEDS: Lantus 1000 UNITS/10 ML VIAL SC SCH (20:02)
[2021-07-13] MEDS ORDERED: Lactated Ringer's 1,000 ML IV SCH (20:15)
[2021-07-13] MEDS: Lactated Ringer's 1,000 ML IV SCH (22:15)
[2021-07-14] MEDS: HumaLOG 300 UNITS/3 ML VIAL SC PRN ×2 (00:26→05:59)
[2021-07-14] MEDS: Dextrose 5% in Water 1,000 ML IV SCH ×2 (02:07→22:58)
[2021-07-14] MEDS ORDERED: Meropenem 1 GM in Sodium Chloride 0.9% 100 ML IVPB SCH (04:00)
[2021-07-14 04:16] LABS: Lactic Acid 1.7 mmol/L (0.5-2.2)
[2021-07-14 04:24] LABS: ALT (SGPT) 54 U/L (8-55); AST (SGOT) 36 U/L (5-34); Albumin 3.1 g/dL (3.4-4.8); Alkaline Phosphatase 62 U/L (40-110); Anion Gap 16 mmol/L (10-20); BUN (Urea Nitrogen) 60 mg/dL (8.4-25.7); Bilirubin, Total 0.7 mg/dL (0.2-1.2); Calc. Creatinine Clearance 91 mL/min (70-130); Calcium 9.8 mg/dL (7.8-10.44); Carbon Dioxide 22 mmol/L (23-31); Chloride 118 mmol/L (98-107); Globulin 3.4 g/dL (2.4-3.5); Glucose 196 mg/dL (80-115); Magnesium 2.6 mg/dL (1.6-2.6); Phosphorus 3.3 mg/dL (2.3-4.7); Potassium 3.6 mmol/L (3.5-5.1); Protein, Total 6.5 g/dL (5.8-8.1); Sodium 152 mmol/L (136-145)
[2021-07-14] MEDS: Lactated Ringer's 1,000 ML IV SCH (05:58)
[2021-07-14 06:13] LABS: Hemoglobin 11.9 g/dL (14.0-18.0); Mean Corpuscular HGB CONC 31.9 g/dL (32.0-36.0); Mean Platelet Volume 9.6 fL (7.4-10.4); Platelet Count 180 thou/uL (130-400); Red Blood Cell (RBC) Count 3.71 mill/uL (4.70-6.10); White Blood Cell (WBC) Count 13.3 thou/uL (4.8-10.8)
[2021-07-14 06:24] LABS: Band 21 % (5-11); Lymphocytes 6 % (21-51); MDiff Complete? YES; Monocytes 1 % (0-10); Neutrophil 72 % (42-75)
[2021-07-14] MEDS: Lisinopril 20 MG TAB PO SCH ×2 (07:11→21:02)
[2021-07-14] MEDS: Famotidine 20 MG TAB PER TUBE SCH ×2 (07:11→21:44)
[2021-07-14] MEDS: hydrALAZINE 25 MG TAB PO SCH ×4 (07:11→21:01)
[2021-07-14] MEDS: Amlodipine 10 MG TAB PO SCH (07:11)
[2021-07-14] MEDS: Metoprolol Tartrate 50 MG TAB PO SCH ×2 (07:11→21:02)
[2021-07-14] MEDS: Senokot S 8.6-50 MG TAB PO SCH ×2 (07:12→21:02)
[2021-07-14] MEDS: Polyethylene Glycol 3350 17 GM Packet PO SCH (07:12)
[2021-07-14 07:26] LABS: Actual Bicarbonate (HCO3a) 19.6 mEq/L (22-28); Base Excess (BEa) -3.6 mEq/L (-2.0 to +3.0); CO2 Tension 30.3 mmHg (35.0-45.0); Calcium, Ionized (arterial) 1.31 mmol/L (1.12-1.30); Carboxyhemoglobin (COHb) 0.1 gm% (0.0-3.0); Hemoglobin (Hb) 12.9 g/dL (14.0-18.0); O2 Tension (PaO2), arterial 68.4 mmHg (> 80.0); Potassium - ABG Lab 3.58 mmol/L (3.70-5.30); pH, Arterial 7.43 (7.35-7.45)
[2021-07-14 07:27] LABS: ALV-art Gradient 107.625 mmHg (0-20); Puncture Site RRA
[2021-07-14] MEDS: cefTRIAXone\\ROCEPHIN 2 GM in Sodium Chloride 0.9% 100 ML IVPB SCH (08:45)
[2021-07-14 09:31] LABS: Vancomycin, Trough 8.1 ug/mL
[2021-07-14] MEDS ORDERED: Dextrose 5% in Water 1,000 ML IV SCH (09:45)
[2021-07-14 20:20] LABS: Troponin I 0.028 ng/mL (< 0.028)
[2021-07-14] MEDS ORDERED: Lidocaine 1% w/Epinephrine 1:100K 20 ML VIAL IJ SCH (21:30)
[2021-07-14] MEDS: Acetaminophen 650 MG/20.3 ML UDCUP PER TUBE PRN (21:43)
[2021-07-14] MEDS: Lantus 1000 UNITS/10 ML VIAL SC SCH (21:44)
[2021-07-14 22:24] LABS: Anion Gap 14 mmol/L (10-20); BUN (Urea Nitrogen) 43 mg/dL (8.4-25.7); Calc. Creatinine Clearance 109 mL/min (70-130); Calcium 9.8 mg/dL (7.8-10.44); Carbon Dioxide 24 mmol/L (23-31); Chloride 120 mmol/L (98-107); Glucose 174 mg/dL (80-115); Potassium 4.4 mmol/L (3.5-5.1); Sodium 154 mmol/L (136-145)
[2021-07-15 04:30] LABS: Anion Gap 14 mmol/L (10-20); BUN (Urea Nitrogen) 42 mg/dL (8.4-25.7); Calc. Creatinine Clearance 109 mL/min (70-130); Carbon Dioxide 23 mmol/L (23-31); Chloride 118 mmol/L (98-107); Potassium 3.5 mmol/L (3.5-5.1); Sodium 151 mmol/L (136-145)
[2021-07-15 04:31] LABS: ALT (SGPT) 185 U/L (8-55); AST (SGOT) 152 U/L (5-34); Albumin 3.3 g/dL (3.4-4.8); Alkaline Phosphatase 84 U/L (40-110); Band 12 % (5-11); Bilirubin, Total 0.8 mg/dL (0.2-1.2); Calcium 9.8 mg/dL (7.8-10.44); Globulin 3.8 g/dL (2.4-3.5); Glucose 182 mg/dL (80-115); Hemoglobin 12.4 g/dL (14.0-18.0); Lymphocytes 9 % (21-51); MDiff Complete? YES; Magnesium 2.4 mg/dL (1.6-2.6); Mean Corpuscular HGB CONC 32.3 g/dL (32.0-36.0); Mean Corpuscular Hemoglobin 32.3 pg (27.0-31.0); Mean Platelet Volume 9.4 fL (7.4-10.4); Monocytes 6 % (0-10); Neutrophil 73 % (42-75); Phosphorus 3.3 mg/dL (2.3-4.7); Platelet Count 175 thou/uL (130-400); Protein, Total 7.1 g/dL (5.8-8.1); RBC Distribution Width 12.8 % (11.5-14.5); Red Blood Cell (RBC) Count 3.85 mill/uL (4.70-6.10); White Blood Cell (WBC) Count 11.1 thou/uL (4.8-10.8)
[2021-07-15] MEDS ORDERED: Potassium Chloride 20 MEQ TAB PO SCH (05:45)
[2021-07-15] MEDS ORDERED: Vecuronium 10 MG VIAL IVP PRN (07:00)
[2021-07-15] MEDS ORDERED: Fentanyl 100 MCG/2 ML VIAL SLOW IVP PRN (07:00)
[2021-07-15] MEDS ORDERED: ceFAZolin 2 GM/Dextrose 50 ML 2 GM in Premix Bag 1 BAG IVPB SCH (07:45)
[2021-07-15] MEDS: Midazolam HCl 2 mg/2 ml Vial SLOW IVP PRN ×3 (07:45→08:05)
[2021-07-15] MEDS ORDERED: Xylocaine 1% w/ Epi 1:100K 10 ML VIAL NERVE BLCK SCH (07:45)
[2021-07-15] MEDS ORDERED: Vecuronium 10 MG VIAL ONE (08:06)
[2021-07-15] MEDS: Dextrose 5% in Water 1,000 ML IV SCH ×2 (09:16→18:43)
[2021-07-15] MEDS: cefTRIAXone\\ROCEPHIN 2 GM in Sodium Chloride 0.9% 100 ML IVPB SCH (09:17)
[2021-07-15] MEDS ORDERED: Fentanyl 100 MCG/2 ML VIAL SLOW IVP SCH (11:45)
[2021-07-15] MEDS: hydrALAZINE 25 MG TAB PO SCH ×4 (13:00→21:09)
[2021-07-15] MEDS: Senokot S 8.6-50 MG TAB PO SCH ×2 (14:09→21:14)
[2021-07-15] MEDS: Lisinopril 20 MG TAB PO SCH ×2 (14:09→21:12)
[2021-07-15] MEDS: Metoprolol Tartrate 50 MG TAB PO SCH ×2 (14:09→21:12)
[2021-07-15] MEDS: Polyethylene Glycol 3350 17 GM Packet PO SCH (14:09)
[2021-07-15] MEDS: Amlodipine 10 MG TAB PO SCH (14:11)
[2021-07-15] MEDS: Famotidine 20 MG TAB PER TUBE SCH ×3 (14:11→21:23)
[2021-07-15] MEDS ORDERED: Lidocaine 1% w/Epinephrine 1:100K 20 ML VIAL FS SCH (14:30)
[2021-07-15] MEDS: Lantus 1000 UNITS/10 ML VIAL SC SCH (21:24)
[2021-07-16] MEDS: Dextrose 5% in Water 1,000 ML IV SCH ×2 (04:47→15:20)
[2021-07-16 05:13] VITALS: BMI 30.3
[2021-07-16] MEDS: hydrALAZINE 25 MG TAB PO SCH (08:24)
[2021-07-16] MEDS: Polyethylene Glycol 3350 17 GM Packet PO SCH (08:25)
[2021-07-16] MEDS: Metoprolol Tartrate 50 MG TAB PO SCH (08:25)
[2021-07-16] MEDS: Lisinopril 20 MG TAB PO SCH (08:25)
[2021-07-16] MEDS: Amlodipine 10 MG TAB PO SCH (08:25)
[2021-07-16] MEDS: Senokot S 8.6-50 MG TAB PO SCH ×2 (08:26→20:26)
[2021-07-16 08:50] LABS: Hemoglobin 12.4 g/dL (14.0-18.0); Mean Corpuscular Hemoglobin 32.6 pg (27.0-31.0); Mean Platelet Volume 10.2 fL (7.4-10.4); Platelet Count 136 thou/uL (130-400); RBC Distribution Width 12.4 % (11.5-14.5); Red Blood Cell (RBC) Count 3.81 mill/uL (4.70-6.10); White Blood Cell (WBC) Count 8.5 thou/uL (4.8-10.8)
[2021-07-16 09:04] LABS: Anion Gap 14 mmol/L (10-20); BUN (Urea Nitrogen) 28 mg/dL (8.4-25.7); Calc. Creatinine Clearance 149 mL/min (70-130); Calcium 9.2 mg/dL (7.8-10.44); Carbon Dioxide 23 mmol/L (23-31); Chloride 114 mmol/L (98-107); Glucose 142 mg/dL (80-115); Potassium 4.4 mmol/L (3.5-5.1); Sodium 147 mmol/L (136-145)
[2021-07-16 09:28] LABS: Band 13 % (5-11); Eosinophils 2 % (0-10); Lymphocytes 13 % (21-51); MDiff Complete? YES; Monocytes 2 % (0-10); Neutrophil 70 % (42-75); Platelet Morphology Comment Appears Adequate; Polychromasia SLIGHT = 2-3 cells (100X) (0-2/hpf)
[2021-07-16] MEDS: Famotidine 20 MG TAB PER TUBE SCH ×2 (09:57→20:37)
[2021-07-16] MEDS: cefTRIAXone\\ROCEPHIN 2 GM in Sodium Chloride 0.9% 100 ML IVPB SCH (09:57)
[2021-07-16] MEDS: Morphine 4 MG/ML VIAL SLOW IVP PRN (17:31)
[2021-07-16] MEDS: Lantus 1000 UNITS/10 ML VIAL SC SCH (20:37)
[2021-07-17] MEDS: Dextrose 5% in Water 1,000 ML IV SCH ×2 (01:24→08:29)
[2021-07-17 04:05] LABS: Anion Gap 15 mmol/L (10-20); BUN (Urea Nitrogen) 26 mg/dL (8.4-25.7); Calc. Creatinine Clearance 133 mL/min (70-130); Calcium 9.3 mg/dL (7.8-10.44); Carbon Dioxide 24 mmol/L (23-31); Chloride 105 mmol/L (98-107); Glucose 199 mg/dL (80-115); Potassium 4.5 mmol/L (3.5-5.1); Sodium 139 mmol/L (136-145)
[2021-07-17 04:16] LABS: Hemoglobin 11.4 g/dL (14.0-18.0); Mean Corpuscular HGB CONC 33.2 g/dL (32.0-36.0); Mean Corpuscular Hemoglobin 32.4 pg (27.0-31.0); Mean Corpuscular Volume 97.6 fL (78.0-98.0); Platelet Count 157 thou/uL (130-400); RBC Distribution Width 12.1 % (11.5-14.5); Red Blood Cell (RBC) Count 3.52 mill/uL (4.70-6.10); White Blood Cell (WBC) Count 10.4 thou/uL (4.8-10.8)
[2021-07-17 04:17] LABS: Band 7 % (5-11); Lymphocytes 10 % (21-51); MDiff Complete? YES; Monocytes 2 % (0-10); Myelocyte 1 % (0-0); Neutrophil 80 % (42-75); Platelet Morphology Comment Appears Adequate; RBC Morphology Normal
[2021-07-17] MEDS: cefTRIAXone\\ROCEPHIN 2 GM in Sodium Chloride 0.9% 100 ML IVPB SCH (07:56)
[2021-07-17] MEDS: Acetaminophen 650 MG/20.3 ML UDCUP PER TUBE PRN (07:59)
[2021-07-17] MEDS: Polyethylene Glycol 3350 17 GM Packet PO SCH (08:00)
[2021-07-17] MEDS: Senokot S 8.6-50 MG TAB PO SCH ×2 (08:00→20:50)
[2021-07-17] MEDS: Famotidine 20 MG TAB PER TUBE SCH ×2 (08:00→20:50)
[2021-07-17] MEDS: HumaLOG 300 UNITS/3 ML VIAL SC PRN (08:26)
[2021-07-17] MEDS: Lantus 1000 UNITS/10 ML VIAL SC SCH (20:53)
[2021-07-17] MEDS ORDERED: Enoxaparin Sodium 100 MG/ML SYRINGE SC SCH (21:00)
[2021-07-18 03:45] LABS: Anion Gap 17 mmol/L (10-20); BUN (Urea Nitrogen) 21 mg/dL (8.4-25.7); Calc. Creatinine Clearance 164 mL/min (70-130); Calcium 9.1 mg/dL (7.8-10.44); Carbon Dioxide 21 mmol/L (23-31); Chloride 104 mmol/L (98-107); Glucose 148 mg/dL (80-115); Potassium 4.7 mmol/L (3.5-5.1); Sodium 137 mmol/L (136-145)
[2021-07-18 06:40] LABS: Hemoglobin 12.1 g/dL (14.0-18.0); Mean Corpuscular HGB CONC 32.6 g/dL (32.0-36.0); Mean Corpuscular Hemoglobin 31.6 pg (27.0-31.0); Mean Platelet Volume 9.6 fL (7.4-10.4); Platelet Count 151 thou/uL (130-400); RBC Distribution Width 12.2 % (11.5-14.5); Red Blood Cell (RBC) Count 3.83 mill/uL (4.70-6.10)
[2021-07-18 06:50] LABS: Band 8 % (5-11); Lymphocytes 6 % (21-51); MDiff Complete? YES; Monocytes 5 % (0-10); Neutrophil 81 % (42-75); Platelet Morphology Comment Appears Adequate
[2021-07-18] MEDS: Morphine 4 MG/ML VIAL SLOW IVP PRN ×2 (07:57→10:48)
[2021-07-18] MEDS: Famotidine 20 MG TAB PER TUBE SCH (07:58)
[2021-07-18] MEDS: cefTRIAXone\\ROCEPHIN 2 GM in Sodium Chloride 0.9% 100 ML IVPB SCH (07:58)
[2021-07-18] MEDS ORDERED: Enoxaparin Sodium 40 MG/0.4 ML SYRINGE SC SCH (09:00)
[2021-07-18 10:06] VITALS: BP 185/83
[2021-07-18] MEDS: Polyethylene Glycol 3350 17 GM Packet PO SCH (10:06)
[2021-07-18] MEDS: Senokot S 8.6-50 MG TAB PO SCH (10:06)
[2021-07-18] MEDS: Acetaminophen 650 MG/20.3 ML UDCUP PER TUBE PRN (10:50)
[2021-07-18 11:34] VITALS: TEMP 99.4
== END 2021-07-18 12:31 | DRG 3 ==
LOC: ERS 11:14 → CCU 13:02
PROVIDERS: ADMIT Family Medicine; ATTEND Hospitalist
PROC: 009630Z Drainage of Cerebral Ventricle with Drainage Device, Percutaneous Approach (ICD-10-PCS; principal; 2021-06-28)
PROC: 5A1955Z Respiratory Ventilation, Greater than 96 Consecutive Hours (ICD-10-PCS; 2021-06-28)
PROC: 0B9J8ZX Drainage of Left Lower Lung Lobe, Via Natural or Artificial Opening Endoscopic, Diagnostic (ICD-10-PCS; 2021-07-01)
PROC: 0DH67UZ Insertion of Feeding Device into Stomach, Via Natural or Artificial Opening (ICD-10-PCS; 2021-07-03)
PROC: 0B113F4 Bypass Trachea to Cutaneous with Tracheostomy Device, Percutaneous Approach (ICD-10-PCS; 2021-07-15)
PROC: 0DH63UZ Insertion of Feeding Device into Stomach, Percutaneous Approach (ICD-10-PCS; 2021-07-15)
DX: I61.5 Nontraumatic intracerebral hemorrhage, intraventricular (principal); J96.01 Acute respiratory failure with hypoxia; G93.41 Metabolic encephalopathy; A41.9 Sepsis, unspecified organism; R65.20 Severe sepsis without septic shock; E87.0 Hyperosmolality and hypernatremia; J95.851 Ventilator associated pneumonia; G72.81 Critical illness myopathy; I16.1 Hypertensive emergency; I82.622 Acute embolism and thrombosis of deep veins of left upper extremity; G91.1 Obstructive hydrocephalus; Z20.822 Contact with and (suspected) exposure to COVID-19; I10 Essential (primary) hypertension; E78.00 Pure hypercholesterolemia, unspecified; E87.6 Hypokalemia; M10.9 Gout, unspecified; E78.5 Hyperlipidemia, unspecified; I25.10 Atherosclerotic heart disease of native coronary artery without angina pectoris; I65.02 Occlusion and stenosis of left vertebral artery; E11.65 Type 2 diabetes mellitus with hyperglycemia; J04.10 Acute tracheitis without obstruction; E87.8 Other disorders of electrolyte and fluid balance, not elsewhere classified; B96.89 Other specified bacterial agents as the cause of diseases classified elsewhere; B96.4 Proteus (mirabilis) (morganii) as the cause of diseases classified elsewhere; R00.1 Bradycardia, unspecified; I44.1 Atrioventricular block, second degree; R35.89 Other polyuria; J40 Bronchitis, not specified as acute or chronic; Z78.1 Physical restraint status; Z95.1 Presence of aortocoronary bypass graft; Z88.5 Allergy status to narcotic agent; Z79.899 Other long term (current) drug therapy; Z87.442 Personal history of urinary calculi; Z79.82 Long term (current) use of aspirin; Y84.8 Other medical procedures as the cause of abnormal reaction of the patient, or of later complication, without mention of misadventure at the time of the procedure; Y95 Nosocomial condition
CPT/HCPCS: 0240U; 36415; 36416; 36600; 70450; 70496; 70545; 70553; 71045; 72125; 80048; 80053; 80202; 81003; 81015; 82140; 82533; 82805; 83605; 83735; 83935; 84100; 84146; 84443; 84484; 85007; 85025; 85027; 85060; 87040; 87070; 87077; 87186; 87205; 93005; 93010; 93970; 94002; 94003; 94640; 95816; 95819; 95957; 96365; 96368; 96375; A9579; J0360; J0690; J0696; J1650; J1815; J2001; J2060; J2185; J2250; J2270; J2543; J2704; J3010; J3370; J3475; J3480; J3490; J7050; J7070; J7120; Q9967; S0028; U0003; U0005